=== PATIENT | female | born 1980 | race Two or more races ===

== ENCOUNTER 2025-01-16 06:27 | Day surgery (SDC) | payer OTHER ==
[2025-01-15 12:22] LABS: Anion Gap 5.3 mEq/L (5.0-15.0); BUN Blood Urea Nitrogen 15.0 mg/dL (7-18); Glucose Level 171.0 mg/dL (74-106); Potassium 4.3 mEq/L (3.5-5.1)
[2025-01-16] MEDS: NA CHLORIDE 0.9% 1,000 ML ONE (07:00)
[2025-01-16] MEDS ORDERED: SUCCINYLCHOLINE 200 MG/10 ML 200 MG/10 ML SYR IV ONE (07:31)
[2025-01-16] MEDS ORDERED: MIDAZOLAM HCL 2 MG/2 ML INJ ONE (07:32)
[2025-01-16] MEDS ORDERED: FENTANYL CITR 250 MCG/5 ML ONE (07:32)
[2025-01-16] MEDS ORDERED: LIDOCAINE 2% MPF 5 ML VIAL ONE (07:36)
[2025-01-16] MEDS: CEFAZOLIN SODIUM 2 GM/VIAL ONE (08:07)
[2025-01-16] MEDS: LIDOCAINE HCL/EPINEPHRINE 20 ML MDV ONE (08:10)
[2025-01-16] MEDS ORDERED: ONDANSETRON 4 MG/2 ML VIAL ONE (08:25)
[2025-01-16] MEDS: Mastisol Adhesive Liq ONE (10:26)
[2025-01-16] MEDS: HYDROMORPHONE HCL 0.5 MG/0.5 ML INJ ONE (10:53)
[2025-01-16 11:04] VITALS: TEMP 97.3
[2025-01-16 12:10] VITALS: BP 140/78; O2SAT 95
--- NOTE | 2025-01-22 03:04 | OP ---
Date of Procedure: 01/16/2025 Surgeon: CHLOE MELISSA Preoperative Diagnoses: 1. Right parathyroid adenoma. 2. Primary hyperparathyroidism. Postoperative Diagnoses: 1. Right parathyroid adenoma. 2. Primary hyperparathyroidism. Procedures: 1. Excision of right parathyroid adenoma. 2. Recurrent laryngeal nerve monitoring. Anesthesia: General endotracheal anesthesia was administered with the NIMS (nerve integrity monitori ng system) tube. I infiltrated approximately 10 mL of 1% lidocaine with 1:100,000 epinephrine at the incision site. Specimens: Specimens obtained from the right posterior area of the thyroid, where the parathyroid wa s located in the tracheoesophageal groove and submitted to pathology for frozen section analysis whic h revealed hypercellular tissue indicative of parathyroid adenoma. Subsequent permanent sections rev ealed classic parathyroid adenoma. Estimated Blood Loss: Less than 10 mL. Findings: Large right parathyroid gland at least 3.7 cm in diameter, located in the right tracheoeso phageal groove posterior to the right lobe of the thyroid gland. Complications: None. Disposition: Stable. The patient tolerated the procedure well. Indication For Procedure: The patient is a pleasant 44-year-old female, who presented with abnormal lab studies indicative of a suspected parathyroid adenoma. Sestamibi scan and CT scan of the neck re vealed a large possible parathyroid adenoma located posteriorly to the right lobe of the thyroid glan d. These were indications to bring the patient to the operative suite for the above-mentioned proced ure. She understood. All questions were answered. Risks versus benefits and complications were exp lained in detail and a consent was signed, was placed in the chart. Description Of Procedure: The patient was transferred from the preoperative holding area to the oper ative suite by Department of Anesthesia, placed on the operating table supine, sedated and intubated in normal fashion. The nerve integrity monitoring system electrodes were calibrated after placing th e ground electrodes on the left shoulder. I infiltrated approximately 10 mL of 1% lidocaine with 1:1 00,000 epinephrine approximately 2 cm above the sternal notch at the area of incision and the patient was sterilely prepped and draped. A horizontal incision was made approximately 2 cm above the sternal notch with a #15 blade scalpel to the subcutaneous tissue and then monopolar electrocautery was used to dissect down to the level of t he platysma muscle. I then used the ligature for deeper dissection. Once at the subplatysmal plane, I then continued my dissection down to the strap muscles which were divided midline. I then elevate d the sternohyoid and sternothyroid muscles off the fascia of the right thyroid gland and I then retr acted the right lobe anteromedially to reflect the tracheoesophageal groove plane. A very large lisa timi was located in this area. I dissected around it and then I removed 2 pieces of the suspected gla nd and this was sent fresh for frozen section analysis which revealed suspected hypercellular parathy roid adenoma. I then continued my dissection completely around the gland and this was removed. I di d detect a normal-appearing right inferior parathyroid gland. The wound then was irrigated with sali ne and a wet Valsalva was performed. Hemostasis was achieved with Avitene hemostasis sponge and then I reapproximated the strap muscles with several 3-0 Vicryl sutures and then the subcutaneous subderm al tissues and platysma were reapproximated with 3-0 Vicryl suture in a simple interrupted fashion. The dermal and epidermal layers were closed in a continuous subcuticular fashion with 4-0 Monocryl david ture. Steri-Strips were placed. The patient tolerated the procedure well. The neuromonitoring syst em was working throughout the case and we did not encounter the recurrent laryngeal nerve during the operation. She was discharged back to Department of Anesthesia and subsequently discharged to PACU and discharged home on antibiotic and analgesic medication, will follow up in 1 we ek or sooner if needed. YOSELIN/MICHELLE Voice ID: [id number] Report ID: [id number]
== END 2025-01-16 12:45 | disposition home or self-care (01) ==
LOC: OR 06:27
PROVIDERS: ATTEND Otolaryngology Facial Plastic Surgery
PROC: 0GBR0ZZ Excision of Parathyroid Gland, Open Approach (ICD-10-PCS; principal; 2025-01-16 07:45)
DX: E21.0 Primary hyperparathyroidism (principal); D35.1 Benign neoplasm of parathyroid gland
CPT/HCPCS: 60500; 93005; 80048; 36415; 81025; 82947 ×2; 88331; 88305 ×2; J2704; J2003; J2250; J3010; J1100; J1171; J2405; J0330; J7030; 88333; 88334